=== PATIENT | female | born 1975 | race Caucasian/White ===

== ENCOUNTER 2019-04-13 15:43 | Emergency (ER) | payer OTHER ==
[2019-04-13 15:49] VITALS: BP 159/81; PULSE 110; TEMP 98; BMI 24.7
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
== END 2019-04-13 16:21 | disposition home or self-care (01) ==
LOC: JERFT 15:43
DX: Z04.1 Encounter for examination and observation following transport accident (principal); V40.5XXA Car driver injured in collision with pedestrian or animal in traffic accident, initial encounter; Y92.414 Local residential or business street as the place of occurrence of the external cause; Y93.89 Activity, other specified; Y99.8 Other external cause status
CPT/HCPCS: 99281-25